=== PATIENT | male | born 1930 | race Caucasian/White ===

== ENCOUNTER → 2017-09-12 | Outpatient (CLI) | payer MEDICARE, BC ==
[2017-09-12 08:21] LABS: BASO % 0.1 % (0.0-1.0); EOS % 0.3 % (1.0-4.0); HEMATOCRIT 43.8 % (42.0-52.0); HEMOGLOBIN 14.6 g/dl (14.0-18.0); LYMPH # 1.4 10*3/uL (1.3-4.4); LYMPH % 15.9 % (27.0-41.0); MEAN CORPUSCULAR HGB 32.7 pg (27.0-31.0); MEAN CORPUSCULAR HGB CONC 33.3 g/dl (33.0-37.0); MEAN PLATELET VOLUME 9.5 fl (9.6-12.3); MONO # 0.5 10*3/uL (0.1-1.0); NEUT # 6.9 10*3/uL (2.3-7.9); NEUT % 77.4 % (47.0-73.0); PLATELET COUNT AUTOMATED 232 10*3/uL (130-400); RED BLOOD COUNT 4.47 10*6/uL (4.50-5.90); RED CELL DISTRI WIDTH 15.1 % (0-14.5)
[2017-09-13 08:10] LABS: HEPATITIS B SURFACE AG Negative (Negative); HEPATITIS C VIRUS ANTIBODY <0.1 s/co (0.0-0.9); RHEUMATOID ARTHRITIS FACTOR <10.0 IU/mL (0.0-13.9)
[2017-09-13 10:08] LABS: ANTI-RNP ANTIBODIES <0.2 AI (0.0-0.9); ANTI-SMITH ANTIBODIES <0.2 AI (0.0-0.9)
[2017-09-13 21:04] LABS: LUPUS DRVVT 38.3 sec (0.0-47.0); PTT-LA 30.1 sec (0.0-51.9)
[2017-09-14 00:04] LABS: CCP ANTIBODIES IGG/IGA 2 units (0-19)
[2017-09-14 11:07] LABS: LUPUS REFLEX INTERPRETATION Comment: (.)
== END | disposition home or self-care (01) ==
LOC: LAB 07:39
PROVIDERS: Orthopaedic Surgery
DX: M75.02 Adhesive capsulitis of left shoulder (principal); M75.01 Adhesive capsulitis of right shoulder

== ENCOUNTER 2017-10-17 15:12 | Emergency (ER) | payer MEDICARE, BC ==
[~2017-10-17] VITALS: Ht 193 cm; Wt 99.8 kg
[2017-10-17 16:16] LABS: BASO % 0.2 % (0.0-1.0); EOS # 0.1 10*3/uL (0.0-0.4); EOS % 1.1 % (1.0-4.0); HEMATOCRIT 40.9 % (42.0-52.0); HEMOGLOBIN 13.7 g/dl (14.0-18.0); MEAN CORPUSCULAR HGB 32.2 pg (27.0-31.0); MEAN CORPUSCULAR HGB CONC 33.5 g/dl (33.0-37.0); MEAN PLATELET VOLUME 8.7 fl (9.6-12.3); MONO # 0.5 10*3/uL (0.1-1.0); MONO % 8.8 % (3.0-9.0); NEUT # 4.5 10*3/uL (2.3-7.9); NEUT % 73.4 % (47.0-73.0); PLATELET COUNT AUTOMATED 210 10*3/uL (130-400); RED BLOOD COUNT 4.26 10*6/uL (4.50-5.90); RED CELL DISTRI WIDTH 13.5 % (0-14.5); WHITE BLOOD COUNT 6.1 10*3/uL (4.8-10.8)
[2017-10-17 16:25] LABS: ACT PARTIAL THROMBO TIME 23.1 SECONDS (20.8-31.5)
[2017-10-17 16:34] LABS: ALBUMIN 3.2 gm/dl (3.1-4.5); CREATININE 1.97 mg/dL (0.70-1.30); POTASSIUM 5.4 mmol/L (3.5-5.1); TOTAL PROTEIN 6.9 gm/dL (6.4-8.2)
[2017-10-17 16:37] LABS: TROPONIN I 0.082 ng/ml (<0.045)
== END 2017-10-17 17:10 | disposition short-term general hospital (02) ==
LOC: ED 15:12
PROVIDERS: Emergency Medicine
DX: I63.9 Cerebral infarction, unspecified (principal); I48.91 Unspecified atrial fibrillation; E87.5 Hyperkalemia; R47.81 Slurred speech; N25.89 Other disorders resulting from impaired renal tubular function; R79.89 Other specified abnormal findings of blood chemistry; R47.01 Aphasia

== ENCOUNTER → 2018-05-21 | Outpatient (CLI) | payer MEDICARE, BC ==
[2018-05-21 10:45] LABS: INTERNATIONAL NORM RATIO 2.1 (2.0-3.5)
== END | disposition home or self-care (01) ==
LOC: LAB 09:48
PROVIDERS: Internal Medicine Cardiovascular Disease
DX: I48.91 Unspecified atrial fibrillation (principal)